=== PATIENT | male | born 1970 | race African-American/Black ===

== ENCOUNTER 2019-10-25 12:37 | Inpatient (IN) | payer OTHER ==
[2019-10-25 13:42] VITALS: BMI 27.9
--- NOTE | 2019-10-25 15:58 | HP ---
CIWA Score Nausea/Vomitin Muscle Tremors: 7-Severe,w/o Arm Extended Anxiety: 2 Agitation: 1-Slight > Activity Paroxysmal Sweats: 1-Minimal Palms Moist Orientation: 0-Oriented Tacttile Disturbances: 1-Very Mild Itch/Numbness Auditory Disturbances: 0-None Visual Disturbances: 0-None Headache: 0-None Present CIWA-Ar Total Score: 14 - Admission Criteria OASAS Guidelines: Admission for Medically Managed Detox: Requires at least one of the followin. CIWA greater than 12 2. Seizures within the past 24 hours 3. Delirium tremens within the past 24 hours 4. Hallucinations within the past 24 hours 5. Acute intervention needed for co occurring medical disorder 6. Acute intervention needed for co occurring psychiatric disorder 7. Severe withdrawal that cannot be handled at a lower level of care (continued vomiting, continued diarrhea, abnormal vital signs) requiring intravenous medication and/or fluids 8. Patient presents the following: CIWA greater than 12 Admission Criteria Met: Admission criteria met Admitting History and Physical - Admission History of Present Illness: The patient is a 49 yo m w/ PMH DM, HTN, MDD, anxiety who comes into [facility] for detox from alcohol. The patient was recently admitted to [facility] for detox for one day. He fell there last night and refused medical attention at that time, so [facility] medically discharged him. Once he was discharged, he came here as he wished to continue his detox. He does not recall what regimen he was on, but does recall being given Valium. The patient endorses drinking 5 liters of wine and 5x 6packs of 16 oz beers daily. His last drink was yesterday morning. He started drinking at 16, but has only been drinking heavily since february, when his girlfriend of 10 years left him. The patient endorses blackouts, but denies ever having seizures from withdrawals. The patient states that he was on multiple medications for his medical and psychiatric conditions, but has not taken them in over 3 weeks due to his drinking. Patient meets admission criteria for detox from alcohol. History Source: Patient Limitations to Obtaining History: No Limitations - Past Medical History Cardiovascular: Yes: HTN Psych: Yes: Addictions, Anxiety, Depression Endocrine: Yes: Diabetes Mellitus - Past Surgical History Past Surgical History: Yes: Amputation (partial amputation of both lower extremities) Additional Past Surgical History: gastric bypass Admission [facility] - HPI Allergies/Adverse Reactions: Allergies Allergy/AdvReac Type Severity Reaction Status Date / Time cephalexin [From Keflex] Allergy Severe Swelling Verified 10/25/19 13:12 morphine Allergy Severe Verified 10/25/19 13:12 - Ebola screening Have you traveled outside of the country in the last 21 days: No Have you had contact with anyone from an Ebola affected area: No Do you have a fever: No - Review of Systems Constitutional: No Symptoms Reported EENT: reports: No Symptoms Reported Respiratory: reports: No Symptoms reported Cardiac: reports: No Symptoms Reported GI: reports: Diarrhea, Nausea Musculoskeletal: reports: No Symptoms Reported Psychiatric: reports: Judgement Intact, Mood/Affect Appropiate, Orientated x3 Patient History - Smoking Cessation Smoking history: Current every day smoker Have you smoked in the past 12 months: Yes Aproximately how many cigarettes per day: 2 Initiated information on smoking cessation: Yes 'Breaking Loose' booklet given: 10/25/19 - Substances abused Alcohol Substance route: Oral Frequency: Daily Amount used: 5 liter of [place]osc[place]/Zifendal, 5x 6 packs of 16oz beer Age of first use: 17 Date of last use: 10/24/19 Admission Physical Exam S - Vital Signs Vital Signs: Vital Signs - 24 hr 10/25/19 13:05 Temperature 97.8 F Pulse Rate 102 H Respiratory 18 Rate Blood Pressure 170/97 - Physical General Appearance: Yes: Nourished, Mild Distress HEENTM: Yes: EOMI, Normal ENT Inspection, Normocephalic, LEE ANN Respiratory: Yes: Chest Non-Tender, Lungs Clear, Normal Breath Sounds, No Respiratory Distress, No Accessory Muscle Use Cardiology: Yes: Regular Rhythm, Regular Rate, S1, S2. 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, Fully Oriented, Alert, Motor Strength 5/5, Normal Mood/Affect Integumentary: Yes: Normal Color, Dry, Warm - Diagnostic (1) Alcohol dependence Current Visit: Yes Status: Acute (2) Hypertension Current Visit: Yes Status: Acute (3) Major depression Current Visit: Yes Status: Acute (4) Anxiety Current Visit: Yes Status: Acute (5) Diabetes mellitus Current Visit: Yes Status: Acute Cleared for Admission S - Detox or Rehab [facility] Level of Care: Medically Managed Detox Regimen/Protocol: Librium Breathalyzer - Breathalyzer Breathalyzer: 0 Urine Drug Screen - Test Device Lot number: [id number] Expiration date: 05/18/21 - Control Is test valid?: Yes - Results Drug screen NEGATIVE: No Urine drug screen results: BZO-Benzodiazepines Inpatient Rehab Admission - Rehab Decision to Admit Inpatient rehab admission?: No
--- NOTE | 2019-10-25 17:06 | PN ---
Teaching Attending Note Name of Resident: Florin Ortiz ATTENDING PHYSICIAN STATEMENT I saw and evaluated the patient. I reviewed the resident's note and discussed the case with the resident. I agree with the resident's findings and plan as documented. SUBJECTIVE: 49 yo with AUD, depression, anxiety, DM and HTN. drinks 5L wine and beer. Increased intake over the last few months OBJECTIVE: Vital Signs - 24 hr 10/25/19 13:05 Temperature 97.8 F Pulse Rate 102 H Respiratory 18 Rate Blood Pressure 170/97 ASSESSMENT AND PLAN: AUD- librium detox DM- metformin HTN- metoprolol
[2019-10-25] MEDS ORDERED: chlordiazePOXIDE HCL 25 MG CAPSULE PO PRN (17:27)
[2019-10-25] MEDS ORDERED: hydrOXYzine PAMOATE 25 MG CAPSULE (FP) PO PRN (17:27)
[2019-10-25] MEDS ORDERED: MAGNESIUM CITRATE 300 ML BOTTLE PO PRN (17:27)
[2019-10-25] MEDS ORDERED: ACETAMINOPHEN 325 MG TABLET (FP) PO PRN ×2 (17:27)
[2019-10-25] MEDS ORDERED: MAGNESIUM HYDROX 2400MG/30ML ORAL SUSPENSION 30 ML CUP PO PRN (17:27)
[2019-10-25] MEDS ORDERED: MENTHOL/PHENOL 1 EACH UD MM PRN (17:27)
[2019-10-25] MEDS ORDERED: BISMUTH SUBSALICYLATE 524 MG/30 ML UD PO PRN (17:27)
[2019-10-25] MEDS ORDERED: MAG HYDROX/AL HYDROX/SIMETH 30 ML UNIT-DOSE CUP PO PRN (17:27)
[2019-10-25] MEDS ORDERED: IBUPROFEN 400 MG TABLET (FP) PO PRN (17:27)
[2019-10-25] MEDS ORDERED: METHOCARBAMOL 500 MG TABLET PO PRN (17:27)
[2019-10-25] MEDS: chlordiazePOXIDE HCL 25 MG CAPSULE PO SCH ×2 (18:15→22:04)
[2019-10-25] MEDS: THIAMINE HCL 100 MG TABLET (FP) PO SCH (22:04)
[2019-10-25] MEDS: MELATONIN 5 MG TABLETS PO PRN (22:04)
[2019-10-25] MEDS: INSULIN SLIDING SCALE (NOVOLOG) 1 VIAL SQ SCH (22:12)
[2019-10-26] MEDS: chlordiazePOXIDE HCL 25 MG CAPSULE PO SCH ×4 (05:54→22:32)
[2019-10-26] MEDS: metFORMIN HCL 500 MG TABLET (FP) PO SCH (06:23)
[2019-10-26] MEDS: INSULIN SLIDING SCALE (NOVOLOG) 1 VIAL SQ SCH ×4 (06:24→22:30)
[2019-10-26] MEDS: sitaGLIPtin PHOSPHATE 50 MG TABLET PO SCH (06:24)
--- NOTE | 2019-10-26 08:52 | PN ---
S CIWA - CIWA Score Nausea/Vomitin-Mild Nausea/No Vomiting Muscle Tremors: 3 Anxiety: 4-Mod. Anxious/Guarded Agitation: 2 Paroxysmal Sweats: 2 Orientation: 0-Oriented Tacttile Disturbances: 1-Very Mild Itch/Numbness Auditory Disturbances: 0-None Visual Disturbances: 0-None Headache: 0-None Present CIWA-Ar Total Score: 13 [facility] Progress Note (SOAP) Subjective: 49 years old male admitted on 10/25/19 for alcohol withdrawal sx management treating with librium detox regimen reports right and left toes amputation 2019 amputation scars healed none tender multiple thickening skin noted A and D ointment for dry thicken skin reports wearing contact lens both eyes contact lens container and solution Objective: 10/26/19 08:51 Vital Signs Temperature 96.8 F L 10/26/19 06:39 Pulse Rate 79 10/26/19 06:39 Respiratory Rate 18 10/26/19 06:39 Blood Pressure 126/75 10/26/19 06:39 O2 Sat by Pulse Oximetry (%) Laboratory Last Values POC Glucometer 144 UNITS (80-120) 10/26/19 05:56 10/26/19 08:51 lab pending Assessment: 10/26/19 08:51 alcohol withdrawal Plan: librium regimen
[2019-10-26 09:40] LABS: HEMATOCRIT 37.7 % (35.4-49); HEMOGLOBIN 12.3 GM/dL (11.7-16.9); MCH 29.2 pg (25.7-33.7); MCHC 32.8 g/dl (32.0-35.9); MEAN CELL VOLUME 89.1 fl (80-96); MEAN PLT VOLUME 8.7 fl (7.5-11.1); PLATELET COUNT 244 K/MM3 (134-434); RBC 4.23 M/mm3 (4.00-5.60); RDW 14.9 % (11.9-15.9); WHITE BLOOD COUNT 7.8 K/mm3 (4.0-10.0)
[2019-10-26] MEDS: VITAMINS A AND D TOPICAL OINTMENT 60 GM TUBE TP SCH ×3 (09:52→18:13)
[2019-10-26] MEDS ORDERED: PRENATAL VITAMINS W/ FOLIC ACID TABLET (FP) PO SCH (10:00)
[2019-10-26] MEDS ORDERED: PATIENT'S OWN MEDICATION (NON-FORMULARY) (Sitagliptin Phos/Metformin Hcl [Janumet 50-500 M PO SCH (10:00)
[2019-10-26] MEDS ORDERED: CALCIUM (OYSTER SHELL) 500 MG TABLET (FP) PO SCH (10:00)
[2019-10-26] MEDS ORDERED: FOLIC ACID 1 MG TABLET (FP) PO SCH (10:00)
[2019-10-26] MEDS ORDERED: ASPIRIN COATED 81 MG TABLET.EC PO SCH (10:00)
[2019-10-26 10:12] LABS: ALBUMIN 3.4 g/dl (3.4-5.0); BLOOD UREA NITROGEN 19.5 mg/dL (7-18); CALCIUM 8.7 mg/dL (8.5-10.1); CREATININE 1.4 mg/dL (0.55-1.3); POTASSIUM 4.3 mmol/L (3.5-5.1); TOT PROT 7.6 g/dl (6.4-8.2)
[2019-10-26 10:25] LABS: RPR NONREACTIVE (NONREACTIVE)
--- NOTE | 2019-10-26 11:14 | EKG ---
Test Reason : Blood Pressure : / mmHG Vent. Rate : 096 BPM Atrial Rate : 096 BPM P-R Int : 152 ms QRS Dur : 088 ms QT Int : 352 ms P-R-T Axes : 049 011 025 degrees QTc Int : 444 ms NORMAL SINUS RHYTHM NORMAL ECG NO PREVIOUS ECGS AVAILABLE Confirmed by ROBERTO CARLOS PALACIOS MD ([id number]) on 10/26/2019 11:13:43 AM Referred By: Confirmed By:ROBERTO CARLOS PALACIOS MD
--- NOTE | 2019-10-26 16:34 | CONSULT ---
[facility] Psychiatric Consult - Data Date of interview: 10/26/19 Admission source: [facility] Identifying data: First visit to [facility] and admission to [address] [place] [address] for this 49 y/o AA male, discharged today from [facility] program and self-referred to [facility] for detoxification treatment. JACK issues : alcohol. Patient is single, a father of four, domiciped, unemployed and currently supported on senior care benefits ( self-report). Substance Abuse History: Discussed with patient. Details in current [facility] report as follows : Smoking history: Current every day smoker. Have you smoked in the past 12 months: Yes. Aproximately how many cigarettes per day: 2. Initiated information on smoking cessation: Yes. 'Breaking Loose' booklet given: . - Substances abused. Alcohol. Substance route: Oral. Frequency: Daily. Amount used: 5 liter of Moscato/Zifendal, 5x 6 packs of 16oz beer. Age of first use: 17. Date of last use: 10/24/19 Medical History: Medical profile is remarkable for hypertension, diabetes mellitus, antecedent of gastric bypass (used to weigh 370 lbs) and partial amputation of both feet. Psychiatric History: Patient endorses a history of one psychiatric hospitalization (2019) at [facility]. Got diagnosed with MDD and Anxiety Disorder. Mr Burns reports maintenance treatment with citalopram + trazodone. He indicates that he does not have a mental health provider for OPD care. Patient attributes his depression to a recent romantic break-up (his fiancee of past 10 years had left him, seven months ago, without any explanation). No reported history of suicide attempts. Physical/Sexual Abuse/Trauma History: Traumas : serious physical disability ( partial amputation of both feet), loneliness, unemployment, medical illnesses and estrangement for his fiancee. Additional Comment: Urine drug screen results: BZO-Benzodiazepines. Noted. Mental Status Exam - Mental Status Exam Alert and Oriented to: Time, Place, Person Cognitive Function: Good Patient Appearance: Well Groomed Mood: Depressed, Nervous, Withdrawn, Anxious Affect: Mood Congruent, Constricted Patient Behavior: Fatigued, Appropriate, Cooperative Speech Pattern: Clear, Appropriate Voice Loudness: Normal Thought Process: Intact, Goal Oriented Thought Disorder: Not Present Hallucinations: Denies Suicidal Ideation: Denies Homicidal Ideation: Denies Insight/Judgement: Fair Sleep: Poorly, Difficulty falling asleep Appetite: Good Gait/Station: Normal Psychiatric Findings - Problem List ([place] 1, 2,3) (1) Alcohol dependence Current Visit: Yes Status: Chronic (2) Major depression Current Visit: Yes Status: Chronic Qualifiers: Major depression recurrence: recurrent (3) Adjustment disorder with depressed mood Current Visit: Yes Status: Chronic (4) Insomnia Current Visit: Yes Status: Chronic - Initial Treatment Plan Initial Treatment Plan: Psychoeducation. Sleep hygiene. Support and empathy. Detoxification in progress. MAT services explained to patient. Rehabilitation recommended. Resumed : citalopram 20 mg po daily + trazodone 50 mg po hs. Side effects/benefits of both drugs are discussed with the patient (which includes potential for priapism). MD received informed consent (verbal) from patient. AA meetings. Cognitive therapy. Motivational counseling provided in this session. Observation.
[2019-10-26] MEDS: MELATONIN 5 MG TABLETS PO PRN (22:32)
[2019-10-26] MEDS: THIAMINE HCL 100 MG TABLET (FP) PO SCH (22:32)
[2019-10-27] MEDS: VITAMINS A AND D TOPICAL OINTMENT 60 GM TUBE TP SCH ×2 (00:30→06:52)
[2019-10-27] MEDS ORDERED: chlordiazePOXIDE HCL 25 MG CAPSULE PO SCH (05:00)
[2019-10-27] MEDS: metFORMIN HCL 500 MG TABLET (FP) PO SCH (06:04)
[2019-10-27] MEDS: INSULIN SLIDING SCALE (NOVOLOG) 1 VIAL SQ SCH (06:14)
[2019-10-27 06:15] VITALS: BP 114/71; PULSE 84; TEMP 97.4
[2019-10-27] MEDS: sitaGLIPtin PHOSPHATE 50 MG TABLET PO SCH (06:17)
--- NOTE | 2019-10-27 11:25 | DS ---
[facility] Detox Discharge Summary Admission Date: 10/25/19 Discharge Date: 10/27/19 - History Present History: Alcohol Dependence Additional Comments: 49 years old male admitted on 10/25/19 for alcohol withdrawal sx management treated with librium detox regimen patient is alert oriented x 3 speech clearly coherently ambulating steady gait reports not received contact lens container and solution insists to leave the detox unit that medical issue and needs have not addressed case discussed with the nurse against medical advice is appropriated - Physical Exam Results Vital Signs: Vital Signs Temperature 97.4 F L 10/27/19 06:15 Pulse Rate 84 10/27/19 06:15 Respiratory Rate 18 10/27/19 06:15 Blood Pressure 114/71 10/27/19 06:15 O2 Sat by Pulse Oximetry (%) Pertinent Admission Physical Exam Findings: alcohol withdrawal Laboratory Last Values WBC 7.8 K/mm3 (4.0-10.0) 10/26/19 08:00 RBC 4.23 M/mm3 (4.00-5.60) 10/26/19 08:00 Hgb 12.3 GM/dL (11.7-16.9) 10/26/19 08:00 Hct 37.7 % (35.4-49) 10/26/19 08:00 MCV 89.1 fl (80-96) 10/26/19 08:00 MCH 29.2 pg (25.7-33.7) 10/26/19 08:00 MCHC 32.8 g/dl (32.0-35.9) 10/26/19 08:00 RDW 14.9 % (11.9-15.9) 10/26/19 08:00 Plt Count 244 K/MM3 (134-434) 10/26/19 08:00 MPV 8.7 fl (7.5-11.1) 10/26/19 08:00 Sodium 137 mmol/L (136-145) 10/26/19 08:00 Potassium 4.3 mmol/L (3.5-5.1) 10/26/19 08:00 Chloride 105 mmol/L (98-107) 10/26/19 08:00 Carbon Dioxide 23 mmol/L (21-32) 10/26/19 08:00 Anion Gap 9 MMOL/L (8-16) 10/26/19 08:00 BUN 19.5 mg/dL (7-18) H 10/26/19 08:00 Creatinine 1.4 mg/dL (0.55-1.3) H 10/26/19 08:00 Est GFR (CKD-EPI)AfAm 68.85 10/26/19 08:00 Est GFR (CKD-EPI)NonAf 59.41 10/26/19 08:00 POC Glucometer 117 UNITS (80-120) 10/27/19 06:05 Random Glucose 188 mg/dL (74-106) H 10/26/19 08:00 Calcium 8.7 mg/dL (8.5-10.1) 10/26/19 08:00 Total Bilirubin 1.0 mg/dL (0.2-1) 10/26/19 08:00 AST 20 U/L (15-37) 10/26/19 08:00 ALT 22 U/L (13-61) 10/26/19 08:00 Alkaline Phosphatase 108 U/L (45-117) 10/26/19 08:00 Total Protein 7.6 g/dl (6.4-8.2) 10/26/19 08:00 Albumin 3.4 g/dl (3.4-5.0) 10/26/19 08:00 RPR Titer Nonreactive (NONREACTIVE) 10/26/19 08:00 HIV 1&2 Antibody Screen Negative 10/26/19 08:00 HIV P24 Antigen Negative 10/26/19 08:00 lab noted - Treatment Hospital Course: Detox Protocol Followed Patient has Accepted a Rehab Referral to: community support approach - Medication Discharge Medications: Ambulatory Orders Aspirin [Aspirin EC] 81 mg PO DAILY 10/25/19 Calcium Carbonate [Calcium] 1,000 mg PO DAILY 10/25/19 Citalopram Hydrobromide [Celexa -] 20 mg PO DAILY 10/25/19 Famotidine [Pepcid] 20 mg PO BID PRN 10/25/19 Folic Acid 1 mg PO DAILY 10/25/19 Sertraline HCl 100 mg PO DAILY 10/25/19 Sitagliptin Phos/Metformin HCl [Janumet 50-500 mg Tablet] 1 each PO DAILY traZODone HCL [Trazodone HCl] 50 mg PO HS 10/25/19 - Diagnosis (1) Substance induced mood disorder Status: Suspected (2) Hypertension Status: Chronic Qualifiers: Hypertension type: essential hypertension Qualified Code(s): I10 - Essential (primary) hypertension (3) Alcohol dependence Status: Acute Qualifiers: Substance use status: in withdrawal Complication of substance-induced condition: uncomplicated Qualified Code(s): F10.230 - Alcohol dependence with withdrawal, uncomplicated (4) Diabetes mellitus type II, non insulin dependent Status: Chronic - AMA Did Patient Leave Against Medical Advice: Yes
[2019-10-27] MEDS ORDERED: CLOTRIMAZOLE 1% CREAM 15 GM TUBE TP SCH (11:30)
[2019-10-28] MEDS ORDERED: chlordiazePOXIDE HCL 10 MG CAPSULE PO PRN
[2019-10-28] MEDS ORDERED: chlordiazePOXIDE HCL 10 MG CAPSULE PO SCH (05:00)
[2019-10-29] MEDS ORDERED: chlordiazePOXIDE HCL 10 MG CAPSULE PO SCH (05:00)
[2019-10-30] MEDS ORDERED: chlordiazePOXIDE HCL 10 MG CAPSULE PO ONE (05:00)
== END 2019-10-27 08:51 | disposition left against medical advice (07) | DRG 894 ==
LOC: YASAS 12:37 → Y3N 17:29
PROVIDERS: ADMIT Allergy & Immunology; ATTEND Allergy & Immunology
PROC: HZ2ZZZZ Detoxification Services for Substance Abuse Treatment (ICD-10-PCS; principal; 2019-10-25)
DX: F10.230 Alcohol dependence with withdrawal, uncomplicated (principal); F33.9 Major depressive disorder, recurrent, unspecified; F19.24 Other psychoactive substance dependence with psychoactive substance-induced mood disorder; F43.21 Adjustment disorder with depressed mood; I10 Essential (primary) hypertension; E11.9 Type 2 diabetes mellitus without complications; Z79.84 Long term (current) use of oral hypoglycemic drugs; G47.00 Insomnia, unspecified; Z88.5 Allergy status to narcotic agent; Z88.8 Allergy status to other drugs, medicaments and biological substances
CPT/HCPCS: 36415; 80053; 82962; 85027; 86593; 87389; 93005; 93010